=== PATIENT | male | born 1965 | race Caucasian/White ===

== ENCOUNTER → 2016-10-31 | Outpatient (CLI) | payer BC ==
--- NOTE | 2016-10-31 15:17 | XR ---
EXAMINATION TYPE: XR abdomen 1V DATE OF EXAM ORDERED: 10/31/2016 3:09 PM HISTORY: K59.0 constipation. COMPARISON: Previous study dated 01/16/2016. FINDINGS: The abdominal gas pattern is nonspecific with nondistended air-filled loops of large and sm all bowel throughout the abdomen. There is no evidence of obstruction or free air. No unusual calcifi cations are seen. There is mild degenerative change in the lumbar spine.. IMPRESSION: NO ACUTE INTRA-ABDOMINAL ABNORMALITY.
== END | disposition home or self-care (01) ==
LOC: RADXRMAIN 14:56
PROVIDERS: ATTEND Physician Assistant
DX: K59.00 Constipation, unspecified (principal)
CPT/HCPCS: 74000

== ENCOUNTER → 2016-11-19 | Outpatient (CLI) | payer BC ==
--- NOTE | 2016-11-19 18:21 | CT ---
EXAMINATION TYPE: CT abdomen pelvis w con DATE OF EXAM: 11/19/2016 COMPARISON: 01/04/2016 HISTORY: Right upper abdominal pain, lower pelvic pain CT DLP: 1608 mGycm Automated exposure control for dose reduction was used. TECHNIQUE: Helical acquisition of images was performed from the lung bases through the pelvis. CONTRAST: Performed with Oral Contrast and with IV Contrast, patient injected with 100 mL of Omnipaque 300. FINDINGS: LUNG BASES: No significant abnormality is appreciated. LIVER/GB: No significant abnormality is appreciated. PANCREAS: No significant abnormality is seen. SPLEEN: No significant abnormality is seen. ADRENALS: No significant abnormality is seen. KIDNEYS: No significant abnormality is seen. FREE AIR: No free air is visualized. RETROPERITONEAL ADENOPATHY: None visualized REPRODUCTIVE ORGANS: No significant abnormality is seen URINARY BLADDER: No significant abnormality is seen. PELVIC ADENOPATHY: None visualized. OSSEOUS STRUCTURES: No significant abnormality is seen. BOWEL: No significant abnormality is seen. IMPRESSION: NO ACUTE PROCESS.
== END | disposition home or self-care (01) ==
LOC: RADCTMAIN 14:13
PROVIDERS: ATTEND Family Medicine
DX: R10.9 Unspecified abdominal pain (principal)
CPT/HCPCS: 74177; Q9967

== ENCOUNTER → 2017-06-16 | Outpatient (CLI) | payer BC ==
--- NOTE | 2017-06-16 14:18 | XR ---
Right elbow HISTORY: Chronic right elbow pain, M 65.829 3 views of the right elbow Small ossific density present at the dorsal aspect of the distal humerus measures approximately 7 x 4 mm. Marginal spurring is present, mild joint space loss. There may be a joint effusion. Soft tissue swelling noted at the level of the olecranon. Alignment and bone mineralization are maintained. 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
== END | disposition home or self-care (01) ==
LOC: RADXRMAIN 11:49
PROVIDERS: ATTEND Physician Assistant
DX: M19.021 Primary osteoarthritis, right elbow (principal); M65.829 Other synovitis and tenosynovitis, unspecified upper arm

== ENCOUNTER → 2017-09-11 | Outpatient (CLI) | payer BC ==
--- NOTE | 2017-09-11 12:49 | XR ---
EXAMINATION TYPE: XR chest 2V DATE OF EXAM: 09/11/2017 COMPARISON: 08/16/2013 TECHNIQUE: PA and lateral views submitted. HISTORY: Chest pain FINDINGS: The lungs are clear and there is no pneumothorax, pleural effusion, or focal pneumonia. No overt fa ilure. No pneumothorax. No pleural effusion. Hypertrophic and degenerative change of the spine. IMPRESSION: 1. No acute process.
== END | disposition home or self-care (01) ==
LOC: RADXRMAIN 12:29
PROVIDERS: ATTEND Physician Assistant
DX: R07.9 Chest pain, unspecified (principal)
CPT/HCPCS: 71046

== ENCOUNTER → 2018-07-31 | Outpatient (CLI) | payer BC ==
--- NOTE | 2018-07-31 11:39 | XR ---
EXAMINATION TYPE: XR cervical spine limited DATE OF EXAM: 07/31/2018 COMPARISON: NONE HISTORY: Neck pain TECHNIQUE: 3 views are submitted. FINDINGS: The odontoid is intact. There are no compression deformities. The prevertebral soft tissue structur es are within normal limits. Hypertrophic and degenerative changes are noted at levels C4-5, C5-6 an d C6-C7. Mild multilevel facet arthropathy. IMPRESSION: 1. Multilevel degenerative disc disease correlate with MRI as clinically warranted. Most marked findi ngs seen at C6-C7.
== END ==
LOC: RADXRMAIN 11:01
PROVIDERS: ATTEND Midwife
DX: M50.30 Other cervical disc degeneration, unspecified cervical region (principal); M46.96 Unspecified inflammatory spondylopathy, lumbar region
CPT/HCPCS: 72040

== ENCOUNTER → 2019-03-15 | Outpatient (CLI) | payer BC ==
--- NOTE | 2019-03-15 12:39 | CT ---
EXAMINATION TYPE: CT abdomen pelvis w con DATE OF EXAM: 03/15/2019 COMPARISON: CT abdomen and pelvis November 19, 2016. HISTORY: Left lower quadrant pain X3 days CT DLP: 1219 mGycm, Automated Exposure Control for Dose Reduction was Utilized. CONTRAST: CT scan of the abdomen and pelvis is performed with oral and with IV Contrast, patient injected with 100 mL of Isovue 300. FINDINGS: LUNG BASES: No significant abnormality is appreciated. LIVER/GB: No significant abnormality is appreciated. PANCREAS: No significant abnormality is seen. SPLEEN: No significant abnormality is seen. ADRENALS: No significant abnormality is seen. KIDNEYS: Circumaortic left renal vein which is normal variant. BOWEL: Mild to moderate wall thickening proximal sigmoid colon with mild to moderate ill-defined flui d and fat stranding. No well-formed fluid collection or abscess. Occasional colonic diverticula. No p neumoperitoneum. PROSTATE/SEMINAL VESICLES: No gross abnormality seen. LYMPH NODES: No greater than 1cm abdominal or pelvic lymph nodes are appreciated. OSSEOUS STRUCTURES: Multilevel spurring in the spine is seen. OTHER: No significant additional abnormality is seen. IMPRESSION: CT findings consistent with a mild to moderate uncomplicated acute diverticulitis proxima l sigmoid colon level centered in the left mid pelvis.
== END | disposition home or self-care (01) ==
LOC: RADCTMAIN 10:23
PROVIDERS: ATTEND Physician Assistant
DX: K57.91 Diverticulosis of intestine, part unspecified, without perforation or abscess with bleeding (principal)
CPT/HCPCS: 74177; Q9967 ×2

== ENCOUNTER → 2019-08-18 | Outpatient (CLI) | payer BC ==
--- NOTE | 2019-08-18 11:41 | XR ---
EXAMINATION TYPE: XR chest 2V DATE OF EXAM: 08/18/2019 COMPARISON: Prior chest x-ray 09/11/2017 HISTORY: Acute bronchitis, cough and congestion, fever TECHNIQUE: Frontal and lateral views of the chest are obtained. FINDINGS: There is no focal air space opacity, pleural effusion, or pneumothorax seen. The cardiac silhouette size is within normal limits. The osseous structures are intact and there is thoracic sp ondylosis. IMPRESSION: No acute cardiopulmonary process.
[2019-08-18 13:26] LABS: Basophils % (A) 0 %; Eosinophils # (A) 0.1 k/uL (0-0.7); Eosinophils % (A) 2 %; HCT 42.3 % (39.0-53.0); HGB 14.4 gm/dL (13.0-17.5); Lymphocytes # (A) 0.4 k/uL (1.0-4.8); Lymphocytes % (A) 8 %; MCH 32.8 pg (25.0-35.0); MCHC 34.1 g/dL (31.0-37.0); MCV 96.1 fL (80.0-100.0); Mean Platelet Volume 7.6; Monocytes # (A) 0.5 k/uL (0-1.0); Monocytes % (A) 9 %; Neutrophils # (A) 4.1 k/uL (1.3-7.7); Neutrophils % (A) 80 %; Platelet Count 172 k/uL (150-450); RDW 12.4 % (11.5-15.5); WBC 5.1 k/uL (3.8-10.6)
[2019-08-18 14:16] LABS: ALT 32 U/L (4-49); AST 35 U/L (17-59); African American GFR (CKD) >90 (>60 ml/min/1.73 sqM); Albumin 4.4 g/dL (3.5-5.0); Alkaline Phosphatase 64 U/L (38-126); Anion Gap 10 mmol/L; Blood Urea Nitrogen 14 mg/dL (9-20); Calcium 9.3 mg/dL (8.4-10.2); Carbon Dioxide 26 mmol/L (22-30); Chloride 99 mmol/L (98-107); Glucose 79 mg/dL (74-99); Non-African American GFR(CKD) >90 (>60 ml/min/1.73 sqM); Potassium 4.2 mmol/L (3.5-5.1); Sodium 135 mmol/L (137-145); Total Bilirubin 0.4 mg/dL (0.2-1.3); Total Protein 7.2 g/dL (6.3-8.2)
== END | disposition home or self-care (01) ==
LOC: RADXRMAIN 11:23
PROVIDERS: ATTEND Family Medicine
DX: J02.9 Acute pharyngitis, unspecified (principal); R50.9 Fever, unspecified
CPT/HCPCS: 71046; 80053; 85025; 87502

== ENCOUNTER 2019-12-16 12:20 | Observation (INO) | payer BC ==
--- NOTE | 2019-12-16 12:57 | ED ---
Back Pain HPI - General Source: patient, RN notes reviewed Mode of arrival: ambulatory Limitations: no limitations <Lorne Peter - Last Filed: 12/16/19 14:47> <Se Park - Last Filed: 12/16/19 14:53> - General Chief Complaint: Back Pain/Injury Stated Complaint: Middle Back Pain Time Seen by Provider: 12/16/19 12:44 - History of Present Illness Initial Comments: This a 53-year-old male presents emergency Department with chief complaint of mid back pain. Patient states that pain last 3 days intermittently. He states that it feels like someone is pressing on the back between his shoulder blades. Patient is states it does not radiate. Patient denies any shortness breath, chest pain. Patient does have a history of hypertension and is a former smoker. Patient states he saw his primary care physician because his never had pain medicine before which is referred to the emergency department for further evaluation. Patient denies any current symptoms. He states it's sporadic and states that nothing really exacerbates it or makes it go away. Patient denies any nausea vomiting diarrhea constipation no diaphoresis he doesn't at days been having some weird intense right upper quadrant pain. (Lorne Peter) - Related Data Home Medications Medication Instructions Recorded Confirmed Sildenafil [Revatio] 20 mg PO DAILY PRN 12/16/19 12/16/19 Telmisartan [Micardis] 40 mg PO DAILY 12/16/19 12/16/19 Zolpidem [Ambien] 2.5 - 5 mg PO HS PRN 12/16/19 12/16/19 amLODIPine [Norvasc] 5 mg PO DAILY 12/16/19 12/16/19 Allergies Allergy/AdvReac Type Severity Reaction Status Date / Time No Known Allergies Allergy Verified 12/16/19 14:06 Review of Systems ROS Other: All systems not noted in ROS Statement are negative. <Lorne Peter - Last Filed: 12/16/19 14:47> ROS Other: All systems not noted in ROS Statement are negative. <Se Park - Last Filed: 12/16/19 14:53> ROS Statement: Those systems with pertinent positive or pertinent negative responses have been documented in the HPI. Past Medical History Past Medical History: No Reported History Additional Past Medical History / Comment(s): DIVERTICULITIS. UTI. History of Any Multi-Drug Resistant Organisms: None Reported Past Surgical History: Orthopedic Surgery, Tonsillectomy Additional Past Surgical History / Comment(s): RIGHT ROTATOR CUFF, RIGHT ELBOW, AMPUTATION OF PARTIAL LEFT INDEX. Past Anesthesia/Blood Transfusion Reactions: No Reported Reaction Past Psychological History: No Psychological Hx Reported Smoking Status: Current some day smoker Past Alcohol Use History: Daily Past Drug Use History: None Reported <Lorne Peter - Last Filed: 12/16/19 14:47> General Exam Limitations: no limitations General appearance: alert, in no apparent distress Head exam: Present: atraumatic, normocephalic, normal inspection Eye exam: Present: normal appearance, PERRL, EOMI. Absent: scleral icterus, conjunctival injection, periorbital swelling ENT exam: Present: normal exam, normal oropharynx, mucous membranes moist, TM's normal bilaterally Neck exam: Present: normal inspection, full ROM. Absent: tenderness, meningismus, lymphadenopathy Respiratory exam: Present: normal lung sounds bilaterally. Absent: respiratory distress, wheezes, rales, rhonchi, stridor Cardiovascular Exam: Present: regular rate, normal rhythm, normal heart sounds. Absent: systolic murmur, diastolic murmur, rubs, gallop, clicks GI/Abdominal exam: Present: soft, tenderness (Minimal right upper quadrant), no rmal bowel sounds. Absent: distended, guarding, rebound, rigid Back exam: Present: normal inspection, full ROM. Absent: tenderness, CVA tenderness (R), CVA tenderness (L), muscle spasm, paraspinal tenderness, vertebral tenderness Neurological exam: Present: alert, oriented X3, CN II-XII intact, reflexes normal. Absent: motor sensory deficit Skin exam: Present: warm, dry, intact, normal color. Absent: rash <Lorne Peter - Last Filed: 12/16/19 14:47> Course <Se Park - Last Filed: 12/16/19 14:53> Vital Signs 12/16/19 12/16/19 12/16/19 12:22 12:27 13:27 Temperature 98 F Pulse Rate 62 79 Respiratory 18 20 20 Rate Blood Pressure 137/89 134/82 O2 Sat by Pulse 98 100 Oximetry 12/16/19 14:27 Temperature Pulse Rate 80 Respiratory 20 Rate Blood Pressure 142/87 O2 Sat by Pulse 100 Oximetry - Reevaluation(s) Reevaluation #1: 12/16/19 14:52 PA supervision: I personally evaluate this case patient does present with complaints of atypical pain and anginal equivalent is suspected. Patient be admitted for cardiac evaluation I did discuss the case with Dr. Estrada (Se Park) Medical Decision Making - Lab Data Result diagrams: 12/16/19 13:02 12/16/19 13:02 - EKG Data -: EKG Interpreted by Me <Lorne Peter - Last Filed: 12/16/19 14:47> - Lab Data Result diagrams: 12/16/19 13:02 12/16/19 13:02 <Se Park - Last Filed: 12/16/19 14:53> - Medical Decision Making 53-year-old male presented for posterior chest pain, scapular pain. This is nonreproducible labs including d-dimer, troponin CBC and CMP unremarkable this is concerning for anginal quibbling. Patient will be admitted as he does have multiple risk factors and was supposed to have a scheduled stress test which was canceled. (Lorne Peter) - Lab Data Lab Results 12/16/19 12/16/19 12/16/19 Range/Units 13:02 13:02 13:02 WBC 6.1 (3.8-10.6) k/uL RBC 4.47 (4.30-5.90) m/uL Hgb 15.2 (13.0-17.5) gm/dL Hct 44.2 (39.0-53.0) % MCV 98.9 (80.0-100.0) fL MCH 34.1 (25.0-35.0) pg MCHC 34.5 (31.0-37.0) g/dL RDW 12.4 (11.5-15.5) % Plt Count 171 (150-450) k/uL Neutrophils % 60 % Lymphocytes % 30 % Monocytes % 5 % Eosinophils % 4 % Basophils % 0 % Neutrophils # 3.6 (1.3-7.7) k/uL Lymphocytes # 1.8 (1.0-4.8) k/uL Monocytes # 0.3 (0-1.0) k/uL Eosinophils # 0.2 (0-0.7) k/uL Basophils # 0.0 (0-0.2) k/uL PT 9.8 (9.0-12.0) sec INR 0.9 (<1.2) APTT 27.2 (22.0-30.0) sec D-Dimer 0.46 (<0.60) mg/L FEU Sodium 136 L (137-145) mmol/L Potassium 4.5 (3.5-5.1) mmol/L Chloride 104 (98-107) mmol/L Carbon Dioxide 23 (22-30) mmol/L Anion Gap 9 mmol/L BUN 13 (9-20) mg/dL Creatinine 0.68 (0.66-1.25) mg/dL Est GFR (CKD-EPI)AfAm >90 (>60 ml/min/1.73 sqM) Est GFR (CKD-EPI)NonAf >90 (>60 ml/min/1.73 sqM) Glucose 100 H (74-99) mg/dL Calcium 9.1 (8.4-10.2) mg/dL Magnesium 2.1 (1.6-2.3) mg/dL Total Bilirubin 1.0 (0.2-1.3) mg/dL AST 38 (17-59) U/L ALT 33 (4-49) U/L Alkaline Phosphatase 63 (38-126) U/L Troponin I (0.000-0.034) ng/mL Total Protein 7.2 (6.3-8.2) g/dL Albumin 4.4 (3.5-5.0) g/dL Lipase 52 (23-300) U/L 12/16/19 Range/Units 13:02 WBC (3.8-10.6) k/uL RBC (4.30-5.90) m/uL Hgb (13.0-17.5) gm/dL Hct (39.0-53.0) % MCV (80.0-100.0) fL MCH (25.0-35.0) pg MCHC (31.0-37.0) g/dL RDW (11.5-15.5) % Plt Count (150-450) k/uL Neutrophils % % Lymphocytes % % Monocytes % % Eosinophils % % Basophils % % Neutrophils # (1.3-7.7) k/uL Lymphocytes # (1.0-4.8) k/uL Monocytes # (0-1.0) k/uL Eosinophils # (0-0.7) k/uL Basophils # (0-0.2) k/uL PT (9.0-12.0) sec INR (<1.2) APTT (22.0-30.0) sec D-Dimer (<0.60) mg/L FEU Sodium (137-145) mmol/L Potassium (3.5-5.1) mmol/L Chloride (98-107) mmol/L Carbon Dioxide (22-30) mmol/L Anion Gap mmol/L BUN (9-20) mg/dL Creatinine (0.66-1.25) mg/dL Est GFR (CKD-EPI)AfAm (>60 ml/min/1.73 sqM) Est GFR (CKD-EPI)NonAf (>60 ml/min/1.73 sqM) Glucose (74-99) mg/dL Calcium (8.4-10.2) mg/dL Magnesium (1.6-2.3) mg/dL Total Bilirubin (0.2-1.3) mg/dL AST (17-59) U/L ALT (4-49) U/L Alkaline Phosphatase (38-126) U/L Troponin I <0.012 (0.000-0.034) ng/mL Total Protein (6.3-8.2) g/dL Albumin (3.5-5.0) g/dL Lipase (23-300) U/L - EKG Data EKG Comments: EKG performed at 13:00 normal sinus rhythm incomplete right bundle rate of 63 ND 182 QRS 108 QT/QTC 46/4:15 (Lorne Peter) Disposition <Lorne Peter - Last Filed: 12/16/19 14:47> <Se Park - Last Filed: 12/16/19 14:53> Clinical Impression: Anginal equivalent Disposition: ADMITTED IP TO THIS [facility] Condition: Fair Referrals: Brayan Milner MD [Primary Care Provider] - 1-2 days
[2019-12-16 13:14] LABS: Basophils % (A) 0 %; Eosinophils # (A) 0.2 k/uL (0-0.7); Eosinophils % (A) 4 %; HCT 44.2 % (39.0-53.0); HGB 15.2 gm/dL (13.0-17.5); Lymphocytes # (A) 1.8 k/uL (1.0-4.8); Lymphocytes % (A) 30 %; MCH 34.1 pg (25.0-35.0); MCHC 34.5 g/dL (31.0-37.0); MCV 98.9 fL (80.0-100.0); Mean Platelet Volume 7.4; Monocytes # (A) 0.3 k/uL (0-1.0); Monocytes % (A) 5 %; Neutrophils # (A) 3.6 k/uL (1.3-7.7); Neutrophils % (A) 60 %; Platelet Count 171 k/uL (150-450); RBC 4.47 m/uL (4.30-5.90); RDW 12.4 % (11.5-15.5); WBC 6.1 k/uL (3.8-10.6)
--- NOTE | 2019-12-16 13:25 | XR ---
EXAMINATION TYPE: XR chest 2V DATE OF EXAM: 12/16/2019 COMPARISON: NONE HISTORY: Shortness of breath TECHNIQUE: Frontal and lateral views of the chest are obtained. FINDINGS: Scattered senescent parenchymal changes noted. Hyperinflation compatible with COPD. No evidence for infiltrate. No evidence for atelectasis. Heart size is stable. Mediastinal structures are stable and grossly unremarkable. No evidence for hilar prominence. Degenerative changes dorsal spine. IMPRESSION: 1. No evidence for acute pulmonary disease.
[2019-12-16 13:26] LABS: ALT 33 U/L (4-49); AST 38 U/L (17-59); African American GFR (CKD) >90 (>60 ml/min/1.73 sqM); Albumin 4.4 g/dL (3.5-5.0); Alkaline Phosphatase 63 U/L (38-126); Anion Gap 9 mmol/L; Blood Urea Nitrogen 13 mg/dL (9-20); Calcium 9.1 mg/dL (8.4-10.2); Carbon Dioxide 23 mmol/L (22-30); Chloride 104 mmol/L (98-107); Glucose 100 mg/dL (74-99); Lipase 52 U/L (23-300); Magnesium 2.1 mg/dL (1.6-2.3); Non-African American GFR(CKD) >90 (>60 ml/min/1.73 sqM); Sodium 136 mmol/L (137-145); Total Protein 7.2 g/dL (6.3-8.2)
[2019-12-16 13:30] LABS: D-Dimer 0.46 mg/L FEU (<0.60); INR 0.9 (<1.2); Partial Thromboplastin Time 27.2 sec (22.0-30.0); Prothrombin Time 9.8 sec (9.0-12.0)
[2019-12-16 13:48] LABS: Potassium 4.5 mmol/L (3.5-5.1)
--- NOTE | 2019-12-16 14:15 | US ---
EXAMINATION TYPE: US gallbladder DATE OF EXAM: 12/16/2019 COMPARISON: NONE CLINICAL HISTORY: pain. EXAM MEASUREMENTS: Liver Length: 13.6 cm Gallbladder Wall: 0.2 cm CBD: 0.2 cm Right Kidney: 11.2 x 5.6 x 5.7 cm Extensive midline bowel gas, technically difficult study. Pancreas: Obscured by bowel gas Liver: Increased attenuation Gallbladder: wnl Evidence for sonographic Bagley's sign: no CBD: wnl Right Kidney: wnl IMPRESSION: Probable fatty liver.
[2019-12-16] MEDS ORDERED: HEPARIN SODIUM,PORCINE 5,000 UNIT/ML 1 ML VIAL IV ONE (14:49)
[2019-12-16] MEDS ORDERED: NITROGLYCERIN SL TABS 0.4 MG TAB SUBLINGUAL PRN (14:49)
[2019-12-16] MEDS ORDERED: ASPIRIN 81 MG PO STA (14:49)
[2019-12-16] MEDS ORDERED: HEPARIN SODIUM,PORCINE 5,000 UNIT/ML 1 ML VIAL IV PRN (14:49)
[2019-12-16] MEDS ORDERED: HEPARIN SOD,PORK IN 0.45% NACL 25,000 UNIT in 0.45% NACL 1 250ML.BAG IV SCH (15:00)
[2019-12-16] MEDS ORDERED: ZOLPIDEM 5 MG TAB PO PRN (18:16)
[2019-12-16] MEDS ORDERED: KETOROLAC 30 MG/ML 1 ML VIAL IVP PRN (18:17)
--- NOTE | 2019-12-16 18:27 | P.DS ---
Providers Date of admission: 12/16/19 14:52 Attending physician: Fransisco Estrada Consults: 12/16/19 14:49 Consult Physician Urgent Consulting Provider: Prudencio Horn Consult Reason/Comments: chest pain Do you want consulting provider notified?: Yes Primary care physician: Brayan Milner Hospital Course: As mentioned in HPI Patient Condition at Discharge: Fair Plan - Discharge Summary Discharge Rx Participant: No New Discharge Prescriptions: New Meloxicam 15 mg PO DAILY PRN #30 tablet PRN Reason: Pain Famotidine [Pepcid] 20 mg PO BID #30 tablet No Action Telmisartan [Micardis] 40 mg PO DAILY Sildenafil [Revatio] 20 mg PO DAILY PRN PRN Reason: ED amLODIPine [Norvasc] 5 mg PO DAILY Zolpidem [Ambien] 2.5 - 5 mg PO HS PRN PRN Reason: Insomnia Discharge Medication List Famotidine [Pepcid] 20 mg PO BID #30 tablet 12/16/19 [Rx] Meloxicam 15 mg PO DAILY PRN #30 tablet 12/16/19 [Rx] Sildenafil [Revatio] 20 mg PO DAILY PRN 12/16/19 [History] Telmisartan [Micardis] 40 mg PO DAILY 12/16/19 [History] Zolpidem [Ambien] 2.5 - 5 mg PO HS PRN 12/16/19 [History] amLODIPine [Norvasc] 5 mg PO DAILY 12/16/19 [History] Follow up Appointment(s)/Referral(s): Brayan Milner MD [Primary Care Provider] - 3 Days Prudencio Horn MD [STAFF PHYSICIAN] - 1 Week Patient Instructions/Handouts: Back Pain (ED)
--- NOTE | 2019-12-16 18:27 | P.HPIM ---
History of Present Illness 53-year-old pleasant male came in this department with complains of back pain in the midthoracic area. Patient denied any chest pain denied any short of breath lightheadedness. There is no radiation of back pain. Patient has a area of spasm and tenderness in the mid the thoracic spinal area. Patient denied any fever chills nausea vomiting patient was admitted with concerns of acute Kwasi syndrome patient had 2 sets of troponins which were negative patient had EKG which did not show any acute ST-T wave changes but there is some right bundle branch block changes. I do not believe patient will need to stay overnight here. Patient will be discharged with follow-up with cardiology as an outpatient patient will be given a dose given meloxicam will be given a dose of carotid Toradol here patient will be asked to use a heat pack and the back. Patient had a tingling numbness anywhere or weakness anywhere in the body. Pat ient had a d-dimer which is negative. Review of Systems REVIEW OF SYSTEMS: CONSTITUTIONAL: No fever, no malaise, no fatigue. HEENT: No recent visual problems or hearing problems. Denied any sore throat. CARDIOVASCULAR: No chest pain, orthopnea, PND, no palpitations, no syncope. PULMONARY: No shortness of breath, no cough, no hemoptysis. GASTROINTESTINAL: No diarrhea, no nausea, no vomiting, no abdominal pain. NEUROLOGICAL: No headaches, no weakness, no numbness. HEMATOLOGICAL: Denies any bleeding or petechiae. GENITOURINARY: Denies any burning micturition, frequency, or urgency. MUSCULOSKELETAL/RHEUMATOLOGICAL: Denies any joint pain, swelling, or any muscle pain. ENDOCRINE: Denies any polyuria or polydipsia. The rest of the 14-point review of systems is negative. Past Medical History Past Medical History: Blood Disorder, Cancer, COPD, Eye Disorder, Pneumonia Additional Past Medical History / Comment(s): Factor V, intermittent epigastric and R upper quadrant abdominal pain past 2 years, diverticulitis, benign colon polyp, bronchitis, palpitations, R eye cataract, skin cancer removed R mormon. History of Any Multi-Drug Resistant Organisms: None Reported Past Surgical History: Orthopedic Surgery, Tonsillectomy Additional Past Surgical History / Comment(s): R rotator cuff repair, R elbow fracture with surgery, L index finger partial amp, colonoscopy/benign polypectomy Past Anesthesia/Blood Transfusion Reactions: No Reported Reaction Smoking Status: Former smoker - Past Family History Mother Family Medical History: Blood Disorder, CVA/TIA Additional Family Medical History / Comment(s): Mother at the age of 35 yrs from blood clot to brain. She had factor V. Father Family Medical History: Respiratory Disorder Additional Family Medical History / Comment(s): Father of pulmonary fibrosis at the age of 74 yrs. He had diverticulosis. Medications and Allergies Home Medications Medication Instructions Recorded Confirmed Type Famotidine [Pepcid] 20 mg PO BID #30 tablet 12/16/19 Rx Meloxicam 15 mg PO DAILY PRN #30 tablet 12/16/19 Rx Sildenafil [Revatio] 20 mg PO DAILY PRN 12/16/19 12/16/19 History Telmisartan [Micardis] 40 mg PO DAILY 12/16/19 12/16/19 History Zolpidem [Ambien] 2.5 - 5 mg PO HS PRN 12/16/19 12/16/19 History amLODIPine [Norvasc] 5 mg PO DAILY 12/16/19 12/16/19 History Allergies Allergy/AdvReac Type Severity Reaction Status Date / Time No Known Allergies Allergy Verified 12/16/19 14:06 Physical Exam Vitals: Vital Signs Temp Pulse Pulse Resp BP BP Pulse Ox 12/16/19 16:00 61 14 12/16/19 15:53 98.1 F 61 14 144/89 97 12/16/19 15:39 98 F 60 18 136/87 100 12/16/19 15:00 60 18 136/87 100 12/16/19 14:27 80 20 142/87 100 12/16/19 13:27 79 20 134/82 100 12/16/19 12:27 20 12/16/19 12:22 98 F 62 18 137/89 98 Intake and Output 12/16/19 12/16/19 12/16/19 06:59 14:59 22:59 Intake Total 180 Balance 180 Intake: Oral 180 Other: Voiding Method Toilet Weight 86.183 kg 86.183 kg PHYSICAL EXAMINATION: GENERAL: The patient is alert and oriented x3, not in any acute distress. Well developed, well nourished. HEENT: Pupils are round and equally reacting to light. EOMI. No scleral icterus. No conjunctival pallor. Normocephalic, atraumatic. No pharyngeal erythema. No thyromegaly. CARDIOVASCULAR: S1 and S2 present. No murmurs, rubs, or gallops. PULMONARY: Chest is clear to auscultation, no wheezing or crackles. ABDOMEN: Soft, nontender, nondistended, normoactive bowel sounds. No palpable organomegaly. MUSCULOSKELETAL: Focal tenderness in the midthoracic area EXTREMITIES: No cyanosis, clubbing, or pedal edema. NEUROLOGICAL: Gross neurological examination did not reveal any focal deficits. SKIN: No rashes. Results CBC & Chem 7: 12/16/19 13:02 12/16/19 13:02 Labs: Abnormal Lab Results - Last 24 Hours (Table) 12/16/19 Range/Units 13:02 Sodium 136 L (137-145) mmol/L Glucose 100 H (74-99) mg/dL Thrombosis Risk Factor Assmnt - Choose All That Apply Any of the Below Risk Factors Present?: Yes Each Factor Represents 1 point: Age 41-60 years, Obesity (BMI >25) Other Risk Factors: Yes Each Risk Factor Represents 2 Points: Malignancy Each Risk Factor Represents 3 Points: Positive Factor V Leiden Other congenital or acquired thrombophilia - If yes, enter type in comment: No Thrombosis Risk Factor Assessment Total Risk Factor Score: 7 Thrombosis Risk Factor Assessment Level: High Risk Assessment and Plan Plan: -Ruled out acute coronary syndromes with a 2 sets of troponins and EKGs she den ied any chest pain. Patient will not need any emergent stress test at this time. -Back pain without any reflux signs do not believe patient will need further imaging patient pain is about 5-6/10 in severity. Patient will be given prescription for meloxicam Pepcid and the patient will be asked to use heat pad. Patient symptoms has been going on for last 3 days. -Hypertension COPD without any acute exacerbation Patient will be discharged today
[2019-12-17] MEDS ORDERED: LOSARTAN 50 MG TAB PO SCH (09:00)
[2019-12-17] MEDS ORDERED: amLODIPine 5 MG TAB PO SCH (09:00)
[2019-12-17] MEDS ORDERED: ASPIRIN 325 MG TAB PO SCH (09:00)
[2019-12-17 10:09] VITALS: BP 144/89; PULSE 61; RESP 14; TEMP 98.1
== END 2019-12-16 18:37 | disposition home or self-care (01) ==
LOC: EC 12:20 → 1SOBS 14:52
PROVIDERS: ADMIT Internal Medicine; ATTEND Internal Medicine
DX: M54.6 Pain in thoracic spine (principal); R07.89 Other chest pain; M25.519 Pain in unspecified shoulder; I10 Essential (primary) hypertension; J44.9 Chronic obstructive pulmonary disease, unspecified; K57.90 Diverticulosis of intestine, part unspecified, without perforation or abscess without bleeding; D68.51 Activated protein C resistance; E66.9 Obesity, unspecified; Z68.28 Body mass index [BMI] 28.0-28.9, adult; H26.9 Unspecified cataract; F17.200 Nicotine dependence, unspecified, uncomplicated; Z79.899 Other long term (current) drug therapy; Z03.818 Encounter for observation for suspected exposure to other biological agents ruled out; Z86.010 Personal history of colon polyps; Z87.440 Personal history of urinary (tract) infections; Z89.022 Acquired absence of left finger(s); Z87.19 Personal history of other diseases of the digestive system; Z87.01 Personal history of pneumonia (recurrent); Z85.828 Personal history of other malignant neoplasm of skin; Z82.3 Family history of stroke; Z83.2 Family history of diseases of the blood and blood-forming organs and certain disorders involving the immune mechanism; Z83.6 Family history of other diseases of the respiratory system; Z83.79 Family history of other diseases of the digestive system
CPT/HCPCS: 96374; 99285; 36415; 93005; 85379; 80053; 83690; 83735; 84484; 85025; 85610; 85730; 71046; 76705; G0378; U0003; J1644 ×2

== ENCOUNTER → 2020-03-27 | Outpatient (CLI) | payer BC ==
--- NOTE | 2020-03-27 13:07 | XR ---
EXAMINATION TYPE: XR chest 2V DATE OF EXAM: 03/27/2020 COMPARISON: Chest x-ray 12/16/2019 HISTORY: Pneumonia and cough, congestion TECHNIQUE: Frontal and lateral views of the chest are obtained. FINDINGS: There is no focal air space opacity, pleural effusion, or pneumothorax seen. The cardiac silhouette size is within normal limits. The osseous structures are intact and there is a mild spin al curvature. Flowing anterior osteophytes with preservation of disc space suggests underlying diffus e idiopathic skeletal hyperostosis. IMPRESSION: No acute cardiopulmonary process.
== END | disposition home or self-care (01) ==
LOC: RADXRMAIN 10:13
PROVIDERS: ATTEND Nurse Practitioner
DX: J18.9 Pneumonia, unspecified organism (principal)
CPT/HCPCS: 71046

== ENCOUNTER 2020-12-22 08:49 | Emergency (ER) | payer BC ==
[2020-12-22 09:07] VITALS: RESP 18
[2020-12-22] MEDS ORDERED: MORPHINE SULFATE 4 MG/ML SYRINGE IVP STA (09:25)
[2020-12-22] MEDS ORDERED: ONDANSETRON 4 MG/2 ML VIAL IVP STA (09:25)
[2020-12-22] MEDS ORDERED: SODIUM CHLORIDE 0.9% 1,000 ML IV STA (09:25)
[2020-12-22 09:52] LABS: Basophils % (A) 0 %; Eosinophils # (A) 0.2 k/uL (0-0.7); Eosinophils % (A) 2 %; HCT 44.6 % (39.0-53.0); HGB 15.8 gm/dL (13.0-17.5); Lymphocytes # (A) 1.2 k/uL (1.0-4.8); Lymphocytes % (A) 15 %; MCH 34.7 pg (25.0-35.0); MCHC 35.4 g/dL (31.0-37.0); MCV 98.1 fL (80.0-100.0); Mean Platelet Volume 7.2; Monocytes # (A) 0.5 k/uL (0-1.0); Monocytes % (A) 6 %; Neutrophils % (A) 75 %; Platelet Count 168 k/uL (150-450); RBC 4.55 m/uL (4.30-5.90); WBC 7.9 k/uL (3.8-10.6)
[2020-12-22 10:02] LABS: ALT 26 U/L (4-49); AST 31 U/L (17-59); African American GFR (CKD) >90 (>60 ml/min/1.73 sqM); Albumin 4.4 g/dL (3.5-5.0); Alkaline Phosphatase 67 U/L (38-126); Amylase 56 U/L (30-110); Anion Gap 5 mmol/L; Blood Urea Nitrogen 11 mg/dL (9-20); Calcium 9.6 mg/dL (8.4-10.2); Carbon Dioxide 29 mmol/L (22-30); Chloride 101 mmol/L (98-107); Glucose 105 mg/dL (74-99); Lipase 38 U/L (23-300); Non-African American GFR(CKD) >90 (>60 ml/min/1.73 sqM); Potassium 4.3 mmol/L (3.5-5.1); Sodium 135 mmol/L (137-145); Total Bilirubin 0.9 mg/dL (0.2-1.3); Total Protein 7.1 g/dL (6.3-8.2)
[2020-12-22 10:10] LABS: Appearance,Urine Clear (Clear); Bilirubin,Urine Negative (Negative); Blood,Urine Moderate (Negative); Color,Urine Yellow; Glucose,Urine (UA) Negative (Negative); Ketones,Urine Trace (Negative); Leukocyte Esterase,Urine Negative (Negative); Mucus,Urine Rare /hpf; Nitrite,Urine Negative (Negative); PH, Urine 6.5 (5.0-8.0); Protein,Urine Negative (Negative); RBC,Urine 11 /hpf (0-5); Specific Gravity,Urine 1.016 (1.001-1.035); Urobilinogen,Urine <2.0 mg/dL (<2.0)
--- NOTE | 2020-12-22 10:41 | CT ---
EXAMINATION TYPE: CT abdomen pelvis w con DATE OF EXAM: 12/22/2020 COMPARISON: 03/15/2019 HISTORY: Low pelvic pain, left lower quadrant pain CT DLP: 1016.3 mGycm Automated exposure control for dose reduction was used. CONTRAST: CT scan of the abdomen pelvis is performed with IV Contrast, patient injected with 100 mL of Isovue 3 00. FINDINGS- LUNG BASES- No significant abnormality is appreciated. LIVER/GB- No gross abnormality is appreciated. PANCREAS- No gross abnormality is seen. SPLEEN- No gross abnormality is seen. ADRENALS- No gross abnormality is seen. KIDNEYS/BLADDER- no hydronephrosis nephrolithiasis or renal mass. BOWEL-bowel wall thickening of the sigmoid colon with pericolonic inflammatory change in diverticular disease correlate for acute diverticulitis.. LYMPH NODES- No greater than 1cm abdominal or pelvic lymph nodes areappreciated. OSSEOUS STRUCTURES-hypertrophic and degenerative changes spine.. OTHER- aorta of normal caliber. No free fluid or free air. IMPRESSION- 1. Acute sigmoid diverticulitis.
[2020-12-22] MEDS ORDERED: cefTRIAXone IN SWFI 1,000 MG/10 ML SYRINGE IVP STA (11:56)
--- NOTE | 2020-12-22 12:01 | ED ---
General Adult HPI - General Chief complaint: Abdominal Pain Stated complaint: Abd Pain Time Seen by Provider: 12/22/20 09:09 Source: patient Mode of arrival: ambulatory Limitations: no limitations - History of Present Illness Initial comments: 55-year-old male with a past medical history of pneumonia, factor V, diverticulitis, skin cancer presents to the emergency room for a chief complaint of intra-abdominal pain. Patient reports he has had abdominal pain on and off for 3 days now. Patient states it is mostly in the left lower quadrant. Patient denies nausea vomiting or diarrhea. States he has been having normal bowel movements. Patient does admit that this feels like his diverticulitis. Denies fevers at home. Patient has no other complaints at this time including shortness of breath, chest pain, abdominal pain, nausea or vomiting, headache, or visual changes. - Related Data Home Medications Medication Instructions Recorded Confirmed Sildenafil [Revatio] 20 mg PO DAILY PRN 12/16/19 12/16/19 Telmisartan [Micardis] 40 mg PO DAILY 12/16/19 12/16/19 Zolpidem [Ambien] 2.5 - 5 mg PO HS PRN 12/16/19 12/16/19 amLODIPine [Norvasc] 5 mg PO DAILY 12/16/19 12/16/19 Previous Rx's Medication Instructions Recorded Famotidine [Pepcid] 20 mg PO BID #30 tablet 12/16/19 Meloxicam 15 mg PO DAILY PRN #30 tablet 12/16/19 Amoxicillin/Potassium Clav 1 tab PO Q12HR #20 tab 12/22/20 [Augmentin 875-125 Tablet] Allergies Allergy/AdvReac Type Severity Reaction Status Date / Time No Known Allergies Allergy Verified 12/22/20 09:07 Review of Systems ROS Statement: Those systems with pertinent positive or pertinent negative responses have been documented in the HPI. ROS Other: All systems not noted in ROS Statement are negative. Past Medical History Past Medical History: Blood Disorder, Cancer, COPD, Eye Disorder, Pneumonia Additional Past Medical History / Comment(s): Factor V, intermittent epigastric and R upper quadrant abdominal pain past 2 years, diverticulitis, benign colon polyp, bronchitis, palpitations, R eye cataract, skin cancer removed R taoism. History of Any Multi-Drug Resistant Organisms: None Reported Past Surgical History: Orthopedic Surgery, Tonsillectomy Additional Past Surgical History / Comment(s): R rotator cuff repair, R elbow fracture with surgery, L index finger partial amp, colonoscopy/benign polypectomy, left elbow Past Anesthesia/Blood Transfusion Reactions: No Reported Reaction Past Psychological History: No Psychological Hx Reported Smoking Status: Current some day smoker Past Alcohol Use History: Daily Past Drug Use History: None Reported - Past Family History Mother Family Medical History: Blood Disorder, CVA/TIA Additional Family Medical History / Comment(s): Mother at the age of 35 yrs from blood clot to brain. She had factor V. Father Family Medical History: Respiratory Disorder Additional Family Medical History / Comment(s): Father of pulmonary fibrosis at the age of 74 yrs. He had diverticulosis. General Exam Limitations: no limitations General appearance: alert Head exam: Present: atraumatic, normocephalic, normal inspection Eye exam: Present: normal appearance, PERRL, EOMI. Absent: scleral icterus, conjunctival injection, periorbital swelling ENT exam: Present: normal exam, mucous membranes moist Neck exam: Present: normal inspection, full ROM. Absent: tenderness, meningismus, lymphadenopathy Respiratory exam: Present: normal lung sounds bilaterally. Absent: respiratory distress, wheezes, rales, rhonchi, stridor Cardiovascular Exam: Present: regular rate, normal rhythm, normal heart sounds GI/Abdominal exam: Present: soft, tenderness (Lower abdominal tenderness), normal bowel sounds. Absent: distended, guarding, rebound, rigid Neurological exam: Present: alert Course Vital Signs 12/22/20 09:02 Temperature 97.8 F Pulse Rate 82 Respiratory 18 Rate Blood Pressure 135/90 O2 Sat by Pulse 97 Oximetry Medical Decision Making - Medical Decision Making Vitals are stable. Patient afebrile. CBC shows a normal white count. CMP is unremarkable. Urinalysis does not show any evidence of infection. He does have trace blood in his urine and will follow up for this. CT abdomen and pelvis shows acute sigmoid diverticulitis. Pt was reevaluated and is well-appearing. He is nontoxic. Pain has improved. He was given a dose of Rocephin. He will be started on Augmentin. He will follow up with his doctor. He will return here for any worsening symptoms. - Lab Data Result diagrams: 12/22/20 09:30 07/16/21 09:30 Lab Results 12/22/20 12/22/20 12/22/20 Range/Units 09:30 09:30 09:30 WBC 7.9 (3.8-10.6) k/uL RBC 4.55 (4.30-5.90) m/uL Hgb 15.8 (13.0-17.5) gm/dL Hct 44.6 (39.0-53.0) % MCV 98.1 (80.0-100.0) fL MCH 34.7 (25.0-35.0) pg MCHC 35.4 (31.0-37.0) g/dL RDW 12.0 (11.5-15.5) % Plt Count 168 (150-450) k/uL MPV 7.2 Neutrophils % 75 % Lymphocytes % 15 % Monocytes % 6 % Eosinophils % 2 % Basophils % 0 % Neutrophils # 6.0 (1.3-7.7) k/uL Lymphocytes # 1.2 (1.0-4.8) k/uL Monocytes # 0.5 (0-1.0) k/uL Eosinophils # 0.2 (0-0.7) k/uL Basophils # 0.0 (0-0.2) k/uL Sodium 135 L (137-145) mmol/L Potassium 4.3 (3.5-5.1) mmol/L Chloride 101 (98-107) mmol/L Carbon Dioxide 29 (22-30) mmol/L Anion Gap 5 mmol/L BUN 11 (9-20) mg/dL Creatinine 0.73 (0.66-1.25) mg/dL Est GFR (CKD-EPI)AfAm >90 (>60 ml/min/1.73 sqM) Est GFR (CKD-EPI)NonAf >90 (>60 ml/min/1.73 sqM) Glucose 105 H (74-99) mg/dL Plasma Lactic Acid Eris (0.7-2.0) mmol/L Calcium 9.6 (8.4-10.2) mg/dL Total Bilirubin 0.9 (0.2-1.3) mg/dL AST 31 (17-59) U/L ALT 26 (4-49) U/L Alkaline Phosphatase 67 (38-126) U/L Total Protein 7.1 (6.3-8.2) g/dL Albumin 4.4 (3.5-5.0) g/dL Amylase 56 (30-110) U/L Lipase 38 (23-300) U/L Urine Color Yellow Urine Appearance Clear (Clear) Urine pH 6.5 (5.0-8.0) Ur Specific [place] 1.016 (1.001-1.035) Urine Protein Negative (Negative) Urine Glucose (UA) Negative (Negative) Urine Ketones Trace H (Negative) Urine Blood Moderate H (Negative) Urine Nitrite Negative (Negative) Urine Bilirubin Negative (Negative) Urine Urobilinogen <2.0 (<2.0) mg/dL Ur Leukocyte Esterase Negative (Negative) Urine RBC 11 H (0-5) /hpf Urine Mucus Rare H (None) /hpf 12/22/20 Range/Units 09:30 WBC (3.8-10.6) k/uL RBC (4.30-5.90) m/uL Hgb (13.0-17.5) gm/dL Hct (39.0-53.0) % MCV (80.0-100.0) fL MCH (25.0-35.0) pg MCHC (31.0-37.0) g/dL RDW (11.5-15.5) % Plt Count (150-450) k/uL MPV Neutrophils % % Lymphocytes % % Monocytes % % Eosinophils % % Basophils % % Neutrophils # (1.3-7.7) k/uL Lymphocytes # (1.0-4.8) k/uL Monocytes # (0-1.0) k/uL Eosinophils # (0-0.7) k/uL Basophils # (0-0.2) k/uL Sodium (137-145) mmol/L Potassium (3.5-5.1) mmol/L Chloride (98-107) mmol/L Carbon Dioxide (22-30) mmol/L Anion Gap mmol/L BUN (9-20) mg/dL Creatinine (0.66-1.25) mg/dL Est GFR (CKD-EPI)AfAm (>60 ml/min/1.73 sqM) Est GFR (CKD-EPI)NonAf (>60 ml/min/1.73 sqM) Glucose (74-99) mg/dL Plasma Lactic Acid Eris 0.7 (0.7-2.0) mmol/L Calcium (8.4-10.2) mg/dL Total Bilirubin (0.2-1.3) mg/dL AST (17-59) U/L ALT (4-49) U/L Alkaline Phosphatase (38-126) U/L Total Protein (6.3-8.2) g/dL Albumin (3.5-5.0) g/dL Amylase (30-110) U/L Lipase (23-300) U/L Urine Color Urine Appearance (Clear) Urine pH (5.0-8.0) Ur Specific [place] (1.001-1.035) Urine Protein (Negative) Urine Glucose (UA) (Negative) Urine Ketones (Negative) Urine Blood (Negative) Urine Nitrite (Negative) Urine Bilirubin (Negative) Urine Urobilinogen (<2.0) mg/dL Ur Leukocyte Esterase (Negative) Urine RBC (0-5) /hpf Urine Mucus (None) /hpf Disposition Clinical Impression: Diverticulitis, Hematuria Disposition: HOME SELF-CARE Condition: Good Instructions (If sedation given, give patient instructions): Diverticulitis (ED) Additional Instructions: please take Augmentin as directed. Take Motrin and Tylenol for pain. Follow-up with your doctor in one to 2 days. Return to the emergency room for any worsening symptoms. Prescriptions: Amoxicillin/Potassium Clav [Augmentin 875-125 Tablet] 1 tab PO Q12HR #20 tab Is patient prescribed a controlled substance at d/c from ED?: No Referrals: Brayan Milner MD [Primary Care Provider] - 1-2 days Time of Disposition: 12:00
[2020-12-22] MEDS ORDERED: ACET/COD 300 MG/30 MG STARTER PACK 6 TAB BTL PO STA (12:05)
[2020-12-22 12:19] VITALS: BP 127/89; PULSE 88; TEMP 97.9
== END 2020-12-22 12:19 | disposition home or self-care (01) ==
LOC: EC 08:49
DX: K57.32 Diverticulitis of large intestine without perforation or abscess without bleeding (principal); R31.9 Hematuria, unspecified; J44.9 Chronic obstructive pulmonary disease, unspecified; F17.200 Nicotine dependence, unspecified, uncomplicated
CPT/HCPCS: 36415; 80053; 82150; 83605; 83690; 85025; 81001; 74177; 99284; 96374 ×2; 96375; 96361; J2270; J2405; J0696; Q9967

== ENCOUNTER → 2021-08-01 | Outpatient (CLI) | payer BC ==
[2021-08-01 13:44] LABS: Basophils # (A) 0.1 k/uL (0-0.2); Basophils % (A) 1 %; Eosinophils # (A) 0.3 k/uL (0-0.7); Eosinophils % (A) 4 %; HCT 47.1 % (39.0-53.0); HGB 15.7 gm/dL (13.0-17.5); Lymphocytes # (A) 2.4 k/uL (1.0-4.8); Lymphocytes % (A) 36 %; MCH 34.4 pg (25.0-35.0); MCHC 33.3 g/dL (31.0-37.0); MCV 103.4 fL (80.0-100.0); Macrocytosis Slight; Mean Platelet Volume 7.9; Monocytes # (A) 0.4 k/uL (0-1.0); Monocytes % (A) 6 %; Neutrophils # (A) 3.5 k/uL (1.3-7.7); Neutrophils % (A) 52 %; Platelet Count 195 k/uL (150-450); RBC 4.56 m/uL (4.30-5.90); RDW 12.3 % (11.5-15.5); WBC 6.8 k/uL (3.8-10.6)
[2021-08-01 19:36] LABS: Folate, Serum 16.7 ng/mL (4.40-31.00)
[2021-08-03 08:00] LABS: Methylmalonic Acid 0.18 umol/L (<0.40)
== END | disposition home or self-care (01) ==
LOC: LABWHC1 12:50
PROVIDERS: ATTEND Nurse Practitioner Family
DX: D53.9 Nutritional anemia, unspecified (principal)
CPT/HCPCS: 36415; 82607; 82746; 82747; 83921; 85025

== ENCOUNTER → 2022-10-07 | Outpatient (CLI) | payer BC ==
--- NOTE | 2022-10-07 14:25 | XR ---
EXAMINATION TYPE: XR chest 2V DATE OF EXAM: 10/07/2022 COMPARISON: NONE TECHNIQUE: PA and lateral views submitted. HISTORY: Cough FINDINGS: The lungs are clear and there is no pneumothorax, pleural effusion, or focal pneumonia. Heart size normal and no overt failure. Osseous structures demonstrate hypertrophic and degenerative changes of the spine. Hyperinflation suggests COPD. IMPRESSION: 1. No acute process.
== END | disposition home or self-care (01) ==
LOC: RADXRMAIN 14:09
PROVIDERS: ATTEND Family Medicine
DX: J44.1 Chronic obstructive pulmonary disease with (acute) exacerbation (principal)
CPT/HCPCS: 71046

== ENCOUNTER 2022-12-19 07:41 | Day surgery (SDC) | payer BC ==
[2022-12-16 14:33] VITALS: BMI 27.3
--- NOTE | 2022-12-19 07:39 | P.GSHP ---
History of Present Illness H&P Date: 12/19/22 CHIEF COMPLAINT: GERD and colon screen HISTORY OF PRESENT ILLNESS: The patient is a 56-year-old male who presents with gastroesophageal reflux disease including NSAID-induced gastritis and need for colon screen. Upper and lower endoscopy were offered for further evaluation and management. PAST MEDICAL HISTORY: Please see list. PAST SURGICAL HISTORY: Please see list. MEDICATIONS: Please see list. ALLERGIES: Please see list. SOCIAL HISTORY: No illicit drug use FAMILY HISTORY: No reports of Crohn disease or ulcerative colitis. REVIEW OF ORGAN SYSTEMS: CONSTITUTIONAL: No reports of fevers or chills. PHYSICAL EXAM: VITAL SIGNS: Stable GENERAL: Well-developed pleasant in no acute distress. HEENT: No scleral icterus. Extraocular movements grossly intact. Moist buccal mucosa. NECK: Supple without lymphadenopathy. CHEST: Unlabored respirations. Equal bilateral excursions. CARDIOVASCULAR: Regular rate and rhythm. Distal 2+ pulses. ABDOMEN: Soft, nondistended. MUSCULOSKELETAL: No clubbing, cyanosis, or edema. ASSESSMENT: 1. Gastroesophageal reflux disease including NSAID use gastritis 2. Colon screen. PLAN: 1. Recommend proceeding with an upper and lower endoscopy Past Medical History Past Medical History: Blood Disorder, Cancer, COPD, Eye Disorder, Pneumonia Additional Past Medical History / Comment(s): Factor V, diverticulitis, benign colon polyp, bronchitis, palpitations, R eye cataract, skin cancer removed R mandaen. History of Any Multi-Drug Resistant Organisms: None Reported Past Surgical History: Orthopedic Surgery, Tonsillectomy Additional Past Surgical History / Comment(s): R rotator cuff repair, R elbow fracture with surgery, L index finger partial amp, colonoscopy/benign polypectomy, left elbow SX, RT CATARACT REMOVED WITH LENS IMPLANT Past Anesthesia/Blood Transfusion Reactions: No Reported Reaction Smoking Status: Current every day smoker - Past Family History Mother Family Medical History: Blood Disorder, CVA/TIA Additional Family Medical History / Comment(s): Mother at the age of 35 yrs from blood clot to brain. She had factor V. Father Family Medical History: Respiratory Disorder Additional Family Medical History / Comment(s): Father of pulmonary fibrosis at the age of 74 yrs. He had diverticulosis. Medications and Allergies Home Medications Medication Instructions Recorded Confirmed Type Telmisartan [Micardis] 40 mg PO DAILY 12/16/19 12/16/22 History amLODIPine [Norvasc] 5 mg PO DAILY 12/16/19 12/16/22 History Allergies Allergy/AdvReac Type Severity Reaction Status Date / Time No Known Allergies Allergy Verified 12/16/22 14:20
[2022-12-19] MEDS: LACTATED RINGERS 1,000 ML IV SCH ×3 (07:48→08:48)
[2022-12-19 08:05] VITALS: TEMP 97.8
[2022-12-19] MEDS ORDERED: PROPOFOL 10 MG/ML 20 ML VIAL IV ONE (08:48)
[2022-12-19 09:24] VITALS: RESP 16
--- NOTE | 2022-12-19 09:26 | P.PCN ---
Date of Procedure: 12/19/22 Description of Procedure: PREOPERATIVE DIAGNOSIS: Gastroesophageal reflux disease. POSTOPERATIVE DIAGNOSIS: Gastroesophageal reflux disease with erosive esophagitis Gastritis. Diaphragmatic hiatal hernia OPERATION: Esophagogastroduodenoscopy with biopsies along antrum and duodenum SURGEON: Tanya Ward MD ANESTHESIA: MAC. INDICATIONS: The patient is a 57-year-old female who presents with reflux disease. Benefits and risks of the procedure were described. Informed consent was obtained. DESCRIPTION: The patient was brought into the endoscopy suite and laid in the left lateral decubitus position. An Olympus gastroscope was passed along the posterior oropharynx down to the distal esophagus where the squamocolumnar junction was encountered at 39 cm from the incisors. The stomach was entered and no bile reflux was found. Additional findings are listed below. Biopsies with cold forceps were obtained of the antrum. The first through third portion of the duodenum was examined. Retroflexion of the scope confirmed Hill grade 4 lower esophageal valve. The squamocolumnar junction demonstrated LA grade C erosive esophagitis. The stomach was desufflated. The patient tolerated the procedure well. FINDINGS: Squamocolumnar junction 39 cm from the incisors. Diaphragmatic hiatus at 41 cm. Hiatal hernia, 2 cm Hill grade 4 lower esophageal valve LA grade D erosive esophagitis 3 cm linear erosions. Biopsies obtained of the duodenum. Chronic gastritis with biopsies obtained. 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
--- NOTE | 2022-12-19 09:41 | P.PCN ---
Date of Procedure: 12/19/22 Description of Procedure: PREOPERATIVE DIAGNOSIS: Colonoscopy screening POSTOPERATIVE DIAGNOSIS: Sigmoid diverticulosis with diverticulitis Internal hemorrhoids, grade 4 OPERATION: Colonoscopy to the ileocecal valve and appendiceal orifice, cecum SURGEON: Tanya Ward MD. ANESTHESIA: MAC. INDICATIONS: The patient is an 57-year-old male who presents for colon cancer screening. Benefits and risks were described and informed consent was obtained. DESCRIPTION OF PROCEDURE: The patient had undergone GoLYTELY prep. The patient had been brought into the operating room and laid in the left lateral decubitus position. After adequate intravenous sedation, the rectum was examined with 2% lidocaine jelly. The prostate was unremarkable. External hemorrhoids were encountered. The rectal tone was within normal limits. No lesions were palpated in the rectal vault. An Olympus colonoscope was advanced until the cecum, ileocecal valve and appendiceal orifice were clearly viewed. The prep was good. Sigmoid diverticulosis was encountered. Colonic polyps were found and removed. No evidence of focal colitis was found. Retroflexion of the scope demonstrated grade 4 internal hemorrhoids without active bleeding or inflammation. The colon was desufflated. The patient had tolerated the procedure well. Withdrawal time was over 6 minutes. FINDINGS: Aronchick preparation quality scale 2 (1-5) Internal hemorrhoids, grade 4 External hemorrhoids, grade 4. No arteriovenous malformations. Sigmoid diverticulosis with mild diverticulitis No focal colitis. RECOMMENDATIONS: Recommend repeat colonoscopy 5 years, 2027 Plan - Discharge Summary Discharge Rx Participant: No New Discharge Prescriptions: New Sucralfate [Carafate] 1 gm PO BID #30 tablet Pantoprazole [Protonix] 40 mg PO DAILY #14 tab Continue Telmisartan [Micardis] 40 mg PO DAILY amLODIPine [Norvasc] 5 mg PO DAILY Discharge Medication List Telmisartan [Micardis] 40 mg PO DAILY 12/16/19 [History] amLODIPine [Norvasc] 5 mg PO DAILY 12/16/19 [History] Pantoprazole [Protonix] 40 mg PO DAILY #14 tab 12/19/22 [Rx] Sucralfate [Carafate] 1 gm PO BID #30 tablet 12/19/22 [Rx] Follow up Appointment(s)/Referral(s): Tanya Ward MD [STAFF PHYSICIAN] - 01/28/23 11:00 am Patient Instructions/Handouts: *Surgery [facility] - (Anesthesia) Discharge Instructio ns Outpatient Surgery, Gastritis (DC), Diverticulitis (DC) Activity/Diet/Wound Care/Special Instructions: Repeat colonoscopy in 5 years, 2027 Discharge Disposition: HOME SELF-CARE
[2022-12-19 09:52] VITALS: BP 129/85; PULSE 72
== END 2022-12-19 10:35 | disposition home or self-care (01) ==
LOC: ORWHC2ENDO 07:41
PROVIDERS: ATTEND Surgery Plastic and Reconstructive Surgery
DX: Z12.11 Encounter for screening for malignant neoplasm of colon (principal); K29.50 Unspecified chronic gastritis without bleeding; K22.70 Barrett's esophagus without dysplasia; K44.9 Diaphragmatic hernia without obstruction or gangrene; K21.00 Gastro-esophageal reflux disease with esophagitis, without bleeding; K64.4 Residual hemorrhoidal skin tags; K57.30 Diverticulosis of large intestine without perforation or abscess without bleeding; K64.3 Fourth degree hemorrhoids; Z79.899 Other long term (current) drug therapy; J44.9 Chronic obstructive pulmonary disease, unspecified; Z87.891 Personal history of nicotine dependence; Z85.828 Personal history of other malignant neoplasm of skin; Z87.19 Personal history of other diseases of the digestive system; D68.51 Activated protein C resistance
CPT/HCPCS: 88305; 45378; 43239; J2704

== ENCOUNTER → 2024-12-06 | Outpatient (CLI) | payer BC ==
--- NOTE | 2024-12-06 07:42 | US ---
EXAMINATION TYPE: US abdomen limited DATE OF EXAM: 12/06/2024 COMPARISON: CT 12/22/20 CLINICAL INDICATION: Male, 58 years old with history of M79.89 OTHER SPECIFIED SOFT TISSUE DISORDERS; R/O hernia. Two areas of pain, one within the epigastric region just below the xiphoid process with e pisodes of pain beginning one month ago. Second area of pain at the spigelian region just below the rib with episodes of pain beginning 2 week s ago. Areas are not palpable. TECHNIQUE: Grayscale with or without color Doppler imaging of the area of hernia concern. Real-time scanning was performed by the english language learner tutor utilizing Valsalva and additional dynamic maneuve rs to assess for hernia. Images of the contralateral side were also acquired for direct comparison. FINDINGS: Assess for hernia at location of: epigastric and spigelian No evidence of ventral wall defects at patients areas of pain. Patients areas of pain may correspond to bony structures. IMPRESSION: No herniated definitively visualized. Consider CT imaging if there remains concern. [facility], , 12/06/2024 7:40 AM
== END | disposition home or self-care (01) ==
LOC: RADUSWWP 06:52
PROVIDERS: ATTEND Surgery Plastic and Reconstructive Surgery
DX: M79.89 Other specified soft tissue disorders (principal)
CPT/HCPCS: 76705

== ENCOUNTER 2024-12-29 07:41 | Day surgery (SDC) | payer BC ==
--- NOTE | 2024-12-29 08:11 | P.GSHP ---
History of Present Illness H&P Date: 12/29/24 CHIEF COMPLAINT: GERD and dysphagia HISTORY OF PRESENT ILLNESS: The patient is a 59-year-old male who presents reports gastroesophageal reflux disease and dysphagia. Upper endoscopy was offered for further evaluation and management. PAST MEDICAL HISTORY: Please see list. PAST SURGICAL HISTORY: Please see list. MEDICATIONS: Please see list. ALLERGIES: Please see list. SOCIAL HISTORY: No illicit drug use FAMILY HISTORY: No reports of Crohn disease or ulcerative colitis. REVIEW OF ORGAN SYSTEMS: CONSTITUTIONAL: No reports of fevers or chills. GI: Denies any blood in stools or constipation. PHYSICAL EXAM: VITAL SIGNS: Stable GENERAL: Well-developed and pleasant in no acute distress. HEENT: No scleral icterus. Extraocular movements grossly intact. Moist buccal mucosa. NECK: Supple without lymphadenopathy. CHEST: Unlabored respirations. Equal bilateral excursions. CARDIOVASCULAR: Regular rate and rhythm. Distal 2+ pulses. ABDOMEN: Soft, nondistended. MUSCULOSKELETAL: No clubbing, cyanosis, or edema. ASSESSMENT: 1. Gastroesophageal reflux disease 2. Dysphagia PLAN: 1. Recommend proceeding with an upper endoscopy Past Medical History Past Medical History: Blood Disorder, Cancer, COPD, Eye Disorder, GERD/Reflux, Hypertension, Osteoarthritis (OA), Pneumonia Additional Past Medical History / Comment(s): Factor V, diverticulitis, benign colon polyp, bronchitis, palpitations, L eye cataract, skin cancer removed R latter day. History of Any Multi-Drug Resistant Organisms: None Reported Past Surgical History: Orthopedic Surgery, Tonsillectomy Additional Past Surgical History / Comment(s): R rotator cuff repair, R elbow fracture with surgery, L index finger partial amp, colonoscopy/benign polypectomy, left elbow SX, RT CATARACT REMOVED WITH LENS IMPLANT Past Anesthesia/Blood Transfusion Reactions: No Reported Reaction Smoking Status: Current every day smoker - Past Family History Mother Family Medical History: Blood Disorder, CVA/TIA Additional Family Medical History / Comment(s): Mother at the age of 35 yrs from blood clot to brain. She had factor V. Father Family Medical History: Respiratory Disorder Additional Family Medical History / Comment(s): Father of pulmonary fibrosis at the age of 74 yrs. He had diverticulosis. Medications and Allergies Home Medications Medication Instructions Recorded Confirmed Type Telmisartan [Micardis] 40 mg PO 1800 12/16/19 12/29/24 History amLODIPine [Norvasc] 5 mg PO 1800 12/16/19 12/29/24 History Pantoprazole [Protonix] 40 mg PO BID 12/27/24 12/29/24 History Allergies Allergy/AdvReac Type Severity Reaction Status Date / Time No Known Allergies Allergy Verified 12/29/24 08:08
[2024-12-29 08:12] VITALS: RESP 16; TEMP 98.1
[2024-12-29] MEDS: IV FLUID CONTINUATION 1,000 ML IV ONE (08:22)
[2024-12-29] MEDS: LACTATED RINGERS 1,000 ML IV SCH (08:23)
[2024-12-29] MEDS ORDERED: PROPOFOL 10 MG/ML 20 ML VIAL IV ONE (08:48)
[2024-12-29] MEDS ORDERED: LIDOCAINE 1% INJ 10MG/ML (20 ML MDV) ONE (08:48)
--- NOTE | 2024-12-29 09:08 | P.PCN ---
Date of Procedure: 12/29/24 Description of Procedure: PREOPERATIVE DIAGNOSIS: Sampson's esophagus POSTOPERATIVE DIAGNOSIS: Sampson's esophagus Gastritis Diaphragmatic hiatal hernia OPERATION: Esophagogastroduodenoscopy with cold forceps biopsies along esophagus, antrum and duodenum SURGEON: Tanya Ward MD ANESTHESIA: MAC. INDICATIONS: The patient is a 59-year-old male who presents with dysphagia and reflux disease. Benefits and risks of the procedure were described. Informed consent was obtained. DESCRIPTION: The patient was brought into the endoscopy suite and laid in the left lateral decubitus position. An Olympus gastroscope was passed along the posterior oropharynx down to the distal esophagus where the squamocolumnar junction was encountered at 39 cm from the incisors. The stomach was entered and no bile reflux was found. Additional findings are listed below. Biopsies with cold forceps were obtained of the antrum. The first through third portion of the duodenum was examined. Retroflexion of the scope confirmed Hill grade 2 lower esophageal valve. The squamocolumnar junction demonstrated LA grade D erosive esophagitis. The stomach was desufflated. The patient tolerated the procedure well. FINDINGS: Squamocolumnar junction 39 cm from the incisors. Diaphragmatic hiatus at 40 cm. Hiatal hernia, 1 cm Hill grade 2 lower esophageal valve. LA grade D erosive esophagitis, 1 cm linear erosions x 2, biopsies obtained Biopsies obtained of the duodenum. Chronic gastritis with biopsies obtained. RECOMMENDATIONS: Repeat upper endoscopy 3 years, 2027 Strict tobacco cessation advised Plan - Discharge Summary Discharge Rx Participant: No New Discharge Prescriptions: Continue Telmisartan [Micardis] 40 mg PO 1800 amLODIPine [Norvasc] 5 mg PO 1800 Pantoprazole [Protonix] 40 mg PO BID Discharge Medication List Telmisartan [Micardis] 40 mg PO 1800 12/16/19 [History] amLODIPine [Norvasc] 5 mg PO 1800 12/16/19 [History] Pantoprazole [Protonix] 40 mg PO BID 12/27/24 [History] Follow up Appointment(s)/Referral(s): Tanya Ward MD [STAFF PHYSICIAN] - 01/25/25 2:00 pm Patient Instructions/Handouts: Sampson Esophagus (DC), Skin Biopsy (DC) Activity/Diet/Wound Care/Special Instructions: Please see snowmaker for left hand lesion highly suspicious for squamous cell cancer. Discharge Disposition: HOME SELF-CARE
[2024-12-29 09:22] VITALS: BP 121/78; PULSE 68
== END 2024-12-29 09:45 | disposition home or self-care (01) ==
LOC: ORWHC2ENDO 07:41
PROVIDERS: ATTEND Surgery Plastic and Reconstructive Surgery
DX: K21.00 Gastro-esophageal reflux disease with esophagitis, without bleeding (principal); K31.A0 Gastric intestinal metaplasia, unspecified; K22.70 Barrett's esophagus without dysplasia; K31.89 Other diseases of stomach and duodenum; K44.9 Diaphragmatic hernia without obstruction or gangrene; J44.9 Chronic obstructive pulmonary disease, unspecified; I10 Essential (primary) hypertension; M19.90 Unspecified osteoarthritis, unspecified site; F17.210 Nicotine dependence, cigarettes, uncomplicated; Z85.828 Personal history of other malignant neoplasm of skin; Z86.0100 Personal history of colon polyps, unspecified; Z79.899 Other long term (current) drug therapy
CPT/HCPCS: 88305; 43239; J2003; J2704